=== PATIENT | male | born 1955 | race Caucasian/White ===

== ENCOUNTER 2016-12-27 08:04 | Day surgery (SDC) | payer MEDICARE, MEDICAID ==
[~2016-12-27] VITALS: Ht 167.6 cm
--- NOTE | ~2016-12-27 | OR ---
ADMIT: 12/27/2016 RM/LOC: [facility] MR#: [id number] [address] [place] [address] Operative/Delivery Room Report SEX: M AGE: 61 : 1955 SURGERY DATE: 12/27/2016 SURGEON: Jarrell Dee MD PROCEDURES: EGD (Esophagogastroduodenoscopy) with duodenal, gastric cardia, gastric antrum, GE junction biopsies. Incomplete colonoscopy. PREOPERATIVE DIAGNOSIS: Anemia and positive Hemoccult testing. POSTOPERATIVE DIAGNOSES: 1. Esophageal ulceration. 2. Significant antral and gastric cardia gastritis. 3. Small gastric ulceration. 4. Slightly poor prep, as well as slightly nodular prostate. 5. Nodular prostate. INDICATION FOR PROCEDURE: New found anemia with positive Hemoccult testing. DESCRIPTION OF PROCEDURE: After the patient was informed of the risks, benefits, and alternatives to the procedure, informed consent was obtained. He was taken back to GI lab, placed in left lateral decubitus position. Sedation was provided by [employer]. Once appropriately sedated, the gastroscope was advanced under direct visualization to the esophagus without difficulty. When reaching the GE junction, there was significant irritation as seen in image 1 and 5 of 11. Gastroscope was advanced where there was a fair amount of gastritis noted as seen in image 2 of 11. Pylorus was cannulated revealing a normal-appearing duodenum. Duodenal biopsies were taken and as we moved back antral biopsies were taken. The scope was retroflexed revealing an irritated gastric cardia as revealed on image a 4 of 11. There was a small gastric ulceration seen in image 5 of 11. Gastric cardia biopsy was taken. We moved back to the GE junction very carefully. Peripheral biopsies were taken around this GE irritation. Scope was withdrawn. Procedure was terminated. Also had been consented for a complete colonoscopy. Prostate was midline, normal sized but ADMIT: 12/27/2016 RM/LOC: [facility] MR#: [id number] [id number] [place] [address] Operative/Delivery Room Report SEX: M AGE: 61 : 1955 slightly nodular. Rectum revealed good sphincter tone with no palpable masses or lesions. Video colonoscope was introduced per rectum and passed to the cecum without difficulty. Image 8 of 11 does show the cecum was confirmed with ballottement in the usual landmarks. Scope was then slowly removed. There was a slightly poor prep as seen in image 7 and 9 and 11. This was suctioned to the best my ability. The scope was removed with visualization of the remainder of the colonic mucosa to the best of my ability. Once in the rectum, the scope was retroflexed revealing a normal-appearing rectoanal junction as revealed on image 11 of 11. We will monitor the patient closely for any sort of concerning signs or symptoms. He returned to recovery room in stable condition. I will follow up in one week to discuss long-term plan. Jarrell Dee MD/ justin JOB #: [id number] CC: Jarrell Dee, Attending Physician Jarrell Dee, Family Physician
== END 2016-12-27 14:27 | disposition home or self-care (01) ==
LOC: SSS 08:04
PROC: 0DJD8ZZ Inspection of Lower Intestinal Tract, Via Natural or Artificial Opening Endoscopic (ICD-10-PCS; principal; 2016-12-27)
PROC: 0DB48ZX Excision of Esophagogastric Junction, Via Natural or Artificial Opening Endoscopic, Diagnostic (ICD-10-PCS; principal; 2016-12-27)
PROC: 0DB98ZX Excision of Duodenum, Via Natural or Artificial Opening Endoscopic, Diagnostic (ICD-10-PCS; principal; 2016-12-27)
PROC: 0DB68ZX Excision of Stomach, Via Natural or Artificial Opening Endoscopic, Diagnostic (ICD-10-PCS; principal; 2016-12-27)
DX: K29.50 Unspecified chronic gastritis without bleeding (principal); K20.9 Esophagitis, unspecified; R19.5 Other fecal abnormalities; D64.9 Anemia, unspecified; N40.2 Nodular prostate without lower urinary tract symptoms; I10 Essential (primary) hypertension; Z90.49 Acquired absence of other specified parts of digestive tract; Z98.890 Other specified postprocedural states